=== PATIENT | female | born 1995 | race Asian ===

== ENCOUNTER 2021-04-25 22:44 | Emergency (ER) | payer OTHER ==
[~2021-04-25] VITALS: Ht 154.9 cm; Wt 54.4 kg
[2021-04-25 22:57] VITALS: BP_SYST 142
[2021-04-25] MEDS ORDERED: DEXAMETHASONE SOD PHOSPHATE 10 MG/ML VIAL IM ONE (23:15)
[2021-04-25] MEDS ORDERED: FAMOTIDINE PF 20 MG/2 ML VIAL IVP ONE (23:15)
[2021-04-25] MEDS ORDERED: EPINEPHrine 1 MG/ML AMP SUBCUT ONE (23:15)
[2021-04-25] MEDS ORDERED: DIPHENHYDRAMINE INJ 50 MG/ML VIAL IVP ONE (23:15)
[2021-04-25] MEDS ORDERED: EPIN0.3P3 IM (23:45)
[2021-04-26 01:15] VITALS: BP_SYST 121
== END 2021-04-26 01:22 | disposition home or self-care (01) ==
LOC: SED 22:44
DX: T78.2XXA Anaphylactic shock, unspecified, initial encounter (principal)
CPT/HCPCS: 96372; 96374; 96375; 99291; 99292; J0171; J1100; J1200; J3490